=== PATIENT | female | born 1995 | race Caucasian/White ===

== ENCOUNTER → 2017-02-19 03:08 | Emergency (ER) | payer OTHER ==
--- NOTE | 2017-02-19 04:38 | ED ---
Alyse Verdin Rebecca, scribed for Curly Garcia MD on 02/19/17 at 0408 . Lower Extremity - HPI Summary HPI Summary: Pt is a 21 y/o F BIBA who presents to ED c/o L ankle pain s/p fall. At approximately 0200 this morning the pt was walking when she tripped and fell. L ankle pain began immediately after fall and is currently moderate, ranked 6/10. 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 Sx aggravated by ambulation, alleviated by nothing. - History of Current Complaint Chief Complaint: EDExtremityLower Stated Complaint: LT ANKLE INJURY Hx Obtained From: Patient Mechanism Of Injury: Fall From A Standing Position Onset of Pain: Prior to Arrival Onset/Duration: Still Present Severity Currently: Moderate Pain Intensity: 6 Pain Scale Used: 0-10 Numeric Location: Is Discrete @ - L ankle Aggravating Factor(s): Ambulation Alleviating Factor(s): Nothing - Allergies/Home Medications Allergies/Adverse Reactions: Allergies Allergy/AdvReac Type Severity Reaction Status Date / Time Penicillins Allergy Unknown Verified 02/19/17 04:14 Reaction Details PMH/Surg Hx/FS Hx/Imm Hx Endocrine/Hematology History: Denies: Hx Diabetes Cardiovascular History: Denies: Hx Coronary Artery Disease, Hx Hypertension Infectious Disease History: No Infectious Disease History: Denies: Traveled Outside the [place] in Last 30 Days - Family History Known Family History: Negative: Hypertension - Social History Occupation: Student Substance Use Type: Reports: None Smoking Status (MU): Never Smoked Tobacco Review of Systems Negative: Fever Positive: Arthralgia - L ankle pain s/p fall All Other Systems Reviewed And Are Negative: Yes Physical Exam Triage Information Reviewed: Yes Vital Signs On Initial Exam: Initial Vitals Temp Pulse Resp BP Pulse Ox 98 F 73 18 104/74 99 02/19/17 03:26 02/19/17 03:26 02/19/17 03:26 02/19/17 03:26 02/19/17 03:26 Vital Signs Reviewed: Yes Appearance: Positive: Well-Appearing, Pain Distress - mild pain Skin: Positive: Warm Head/Face: Positive: Normal Head/Face Inspection Eyes: Positive: MUKUND ENT: Positive: Hearing grossly normal Respiratory/Lung Sounds: Positive: Breath Sounds Present Musculoskeletal: Positive: Other - swollen tender lt lateral malleolus Neurological: Positive: Alert, Oriented to Person Place, Time, NV Bundle Intact Distally Psychiatric: Positive: Affect/Mood Appropriate Procedures - Splinting Location: lle Hand-Made Type: orthoglass Splint: newman Pre-Proc Neuro Vasc Exam: normal Post-Proc Neuro Vasc Exam: normal Diagnostics - Vital Signs Vital Signs Temp Pulse Resp BP Pulse Ox 02/19/17 03:26 98 F 73 18 104/74 99 - Laboratory Lab Statement: Any lab studies that have been ordered have been reviewed, and results considered in the medical decision making process. - Radiology L ankle XR Xray Interpretation: Positive (See Comments) - Distal fibular fracture Radiology Interpretation Completed By: ED Physician Re-Evaluation - Re-Evaluation First Eval Re-Evaluation Time: 04:10 Comment: Discussed XR results with the pt. Second Eval Re-Evaluation Time: 04:25 Comment: Applied a splint. Lower Extremity Course/Dx - Course Assessment/Plan: Pt is a 21 y/o F BIBA who presents to ED c/o L ankle pain s/p fall. At approximately 0200 this morning the pt was walking when she tripped and fell. L ankle pain began immediately after fall and is currently moderate, ranked 6/10. 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 Sx aggravated by ambulation, alleviated by nothing. Splint was applied. Ankle Xr reveals a distal fibular fracture as read by ED physician. Pt will be D/C to home with Dx of distal fibular fracture with a follow up with orthopedics. She understands and agrees. - Diagnoses Provider Diagnoses: Fracture of distal end of fibula Discharge - Discharge Plan Condition: Improved Disposition: HOME Patient Education Materials: Ankle Fracture (ED), RICE Therapy (ED) Referrals: Hanna Minaya MD [Medical Doctor] - Yoel Su MD [Medical Doctor] - 2 Days (Follow up with orthopedics in 1-2 days. ) Additional Instructions: Return to ED for any returning or worsening symptoms. The documentation as recorded by the Alyse dunn Rebecca accurately reflects the service I personally performed and the decisions made by me, Curly Garcia MD.
[2017-02-19 05:00] VITALS: BP 110/79
--- NOTE | 2017-02-19 07:56 | RAD ---
HISTORY: Fall, left ankle injury COMPARISONS: None VIEWS: 3, Frontal, lateral, and oblique views of the left ankle FINDINGS: BONE DENSITY: Normal. BONES: There is a transverse minimally displaced fracture of the distal fibula with extension to the articular surface. The tibiofibular interval is normal. JOINTS: There is no arthropathy. ALIGNMENT: There is no dislocation. SOFT TISSUES: There is soft tissue swelling most pronounced anteriorly and laterally. OTHER FINDINGS: None. IMPRESSION: MINIMALLY DISPLACED FRACTURE OF THE DISTAL FIBULA.
== END | disposition home or self-care (01) ==
LOC: ED 03:08
DX: S82.402A Unspecified fracture of shaft of left fibula, initial encounter for closed fracture (principal); W01.0XXA Fall on same level from slipping, tripping and stumbling without subsequent striking against object, initial encounter; Y93.01 Activity, walking, marching and hiking; Y92.9 Unspecified place or not applicable; Z88.0 Allergy status to penicillin
CPT/HCPCS: 29515; 99283

== ENCOUNTER 2018-11-04 11:28 | Emergency (ER) | payer OTHER ==
[2018-11-04 11:49] VITALS: BP 107/69
--- NOTE | 2018-11-04 12:21 | UC ---
Throat Pain/Nasal Jules HPI - HPI Summary HPI Summary: 23 old female with a sore throat over the past 2 days. She states that her roommate was recently positive for strep. - History of Current Complaint Chief Complaint: UCGeneralIllness Stated Complaint: SORE THROAT/ BODY ACHES Time Seen by Provider: 11/04/18 11:51 Hx Obtained From: Patient Hx Last Menstrual Period: 11/10/18 ?: No Onset/Duration: Gradual Onset Severity: Moderate Pain Intensity: 5 Cough: None Associated Signs & Symptoms: Positive: Nasal Discharge - Patient states her seasonal allergies have been bothering her as well. Related History: Seasonal Allergies - Allergies/Home Medications Allergies/Adverse Reactions: Allergies Allergy/AdvReac Type Severity Reaction Status Date / Time Penicillins Allergy Severe Anaphylatic Verified 11/04/18 11:48 Shock Home Medications: Home Medications NK [No Home Medications Reported] 11/04/18 [History Confirmed 11/04/18] PMH/Surg Hx/FS Hx/Imm Hx Previously Healthy: Yes - Surgical History Surgical History: Yes Surgery Procedure, Year, and Place: nose - Family History Known Family History: Positive: Non-Contributory Negative: Hypertension - Social History Occupation: Student Lives: Dormitory/Roommates Alcohol Use: Weekly Substance Use Type: Marijuana Smoking Status (MU): Never Smoked Tobacco Review of Systems All Other Systems Reviewed And Are Negative: Yes Constitutional: Positive: Fever - Patient thought she had a fever yesterday which "broke" during the night. Eyes: Positive: Other - Patient has a small stye formation at the inner canthus of the left upper eyelid. ENT: Positive: Sore Throat, Nasal Discharge - Clear nasal coryza. Is Patient Immunocompromised?: No Physical Exam Triage Information Reviewed: Yes Appearance: Well-Appearing, No Pain Distress, Well-Nourished Vital Signs: Initial Vital Signs Temp 98.7 F 11/04/18 11:42 Pulse 81 11/04/18 11:42 Resp 18 11/04/18 11:42 BP 107/69 11/04/18 11:42 Pulse Ox 100 11/04/18 11:42 Vital Signs Reviewed: Yes Eye Exam: Normal Eyes: Positive: Conjunctiva Clear, Other: - PERRLA, EOMI, very small stye formation to the medial aspect of her left upper eyelid. ENT: Positive: Pharynx normal, Nasal drainage - Clear nasal coryza, Uvula midline, Other - Unable to visualize tympanic membranes because of cerumen in the ear canal.. Negative: Trismus, Muffled voice, Hoarse voice Neck exam: Normal Neck: Positive: Supple, Nontender, No Lymphadenopathy Respiratory: Positive: Lungs clear, Normal breath sounds, No respiratory distress, No accessory muscle use Cardiovascular: Positive: RRR, No Murmur, Pulses Normal, Brisk Capillary Refill Abdomen Description: Positive: Nontender, No Organomegaly, Soft Bowel Sounds: Positive: Present Musculoskeletal Exam: Normal Neurological Exam: Normal Psychological Exam: Normal Skin Exam: Normal Throat Pain/Nasal Course/Dx - Course Course Of Treatment: Rapid strep test was negative. Patient also has a very small stye formation of her right upper eyelid. She is to apply warm moist compresses to that area 4-6 times a day. She is to follow up at [facility] if she has any worsening of symptoms or no improvement in 3 or 4 days. The patient is agreeable to this plan of action. - Differential Dx/Diagnosis Provider Diagnosis: Stye external, Pharyngitis Discharge - Sign-Out/Discharge Documenting (check all that apply): Patient Departure All imaging exams completed and their final reports reviewed: No Studies - Discharge Plan Condition: Fair Disposition: HOME Patient Education Materials: Pharyngitis (ED), Stye (ED) Referrals: [facility] [Primary Care Provider] - Additional Instructions: Increase fluids, rest, take Tylenol every 4 hours as needed for fever. Warm saltwater gargles, throat lozenges. Definite follow-up with your primary care provider in 3 or 4 days if no improvement. For the stye you can apply warm moist compresses 4-6 times a day for about 15 or 20 minutes each time and that should resolve itself. - Billing Disposition and Condition Condition: FAIR Disposition: Home - Attestation Statements Provider Attestation: I was available for consult. This patient was seen by the JUAN. The patient was not presented to, seen by, or examined by me. -Rona
== END 2018-11-04 12:19 | disposition home or self-care (01) ==
LOC: UCEAST 11:28
DX: J02.9 Acute pharyngitis, unspecified (principal); H00.014 Hordeolum externum left upper eyelid; J34.89 Other specified disorders of nose and nasal sinuses; J30.2 Other seasonal allergic rhinitis; Z88.0 Allergy status to penicillin
CPT/HCPCS: 87651; 99211; G0463